=== PATIENT | female | born 1955 | race Caucasian/White ===

== ENCOUNTER → 2021-07-19 | Outpatient (CLI) | payer BC ==
--- NOTE | 2021-07-20 02:26 | MR ---
EXAMINATION TYPE: MR shoulder RT wo con DATE OF EXAM: 07/19/2021 COMPARISON: None HISTORY: Pain in right shoulder Multiplanar multiecho imaging of the right shoulder without contrast. There is mild shoulder joint effusion. Subscapularis tendon is intact. The glenoid romel appear intac t. Biceps tendon is intact. There is fluid around the biceps tendon. There is small amount of fluid in the subacromial joint space. The supraspinatus tendon appears gross ly intact. There is no retraction. I see no evidence of a full-thickness tear. The AC joint is intact . There is no significant spur formation. There is no evidence of focal bone destruction. IMPRESSION: No evidence of any significant rotator cuff tear. There is shoulder joint effusion consistent with so me nonspecific synovitis. No fracture.
== END | disposition home or self-care (01) ==
LOC: RADMRIMAIN 07:30
PROVIDERS: ATTEND Physician Assistant Medical
DX: M25.411 Effusion, right shoulder (principal)

== ENCOUNTER → 2021-11-08 | Outpatient (CLI) | payer BC ==
--- NOTE | 2021-11-08 15:42 | CT ---
EXAMINATION TYPE: CT abdomen pelvis wo con DATE OF EXAM: 11/08/2021 COMPARISON: None available HISTORY: hematuria, hx of stones CT DLP: 777.3 mGycm Automated exposure control for dose reduction was used. TECHNIQUE: Helical acquisition of images was performed from the lung bases through the pelvis. FINDINGS: LUNG BASES: No significant abnormality is appreciated. LIVER/GB: No significant abnormality is appreciated. PANCREAS: Slightly atrophic pancreas. SPLEEN: No significant abnormality is seen. ADRENALS: No significant abnormality is seen. KIDNEYS: Few nonobstructing calculi are seen within the left kidney measuring up to 4 mm. A few left upper pole renal cysts without gross suspicious feature, suboptimally assessed by this nonenhanced CT scan. No other definite radiodense urinary calculi. No hydroureter or hydronephrosis bilaterally. FREE AIR: No free air is visualized RETROPERITONEAL ADENOPATHY: None visualized REPRODUCTIVE ORGANS: No significant abnormality is seen URINARY BLADDER: Nondistended with slightly thickened wall, please correlate with urinalysis results . PELVIC ADENOPATHY: None visualized. OSSEOUS STRUCTURES: No significant abnormality is seen. BOWEL: Sizable hiatal hernia containing the gastric fundus. Unremarkable remainder of the stomach, d uodenum and small bowel. No gross colonic abnormality. Normal appendix. OTHER: No sizable ascites. IMPRESSION: Few left renal nonobstructing calculi measuring up to 4 mm. No radiodense obstructing calculi identif ied. No hydroureter or hydronephrosis. Suspected left upper pole renal cysts without suspicious featu re, suboptimally assessed. Nondistended urinary bladder with slightly thickened wall, please correlat e with urinalysis results. Other findings as described above.
== END | disposition home or self-care (01) ==
LOC: RADCTMAIN 15:06
PROVIDERS: ATTEND Family Medicine
DX: N20.0 Calculus of kidney (principal); N32.89 Other specified disorders of bladder
CPT/HCPCS: 74176

== ENCOUNTER → 2024-10-28 | Outpatient (CLI) | payer BC, MEDICARE ==
--- NOTE | 2024-10-28 11:15 | CA ---
Transthoracic Echo Report Name: Cris You Age: 69 Gender: F : 1955 Exam Date: 10/28/2024 08:20 Exam Location: [facility] Ht (in): 64 Wt (lb): 170 Ordering Physician: Hank Snow MD Attending/Referring Phys: Chelsea Huggins [facility] [employer] Aruna Lozoya RDCS Procedure CPT: Indications: R07.9 CHEST PAIN Z12.31 SCREEN MAMMO Cardiac Hx: Technical Quality: Fair Contrast 1: Total Dose (mL): Contrast 2: Total Dose (mL): MEASUREMENTS (Male / Female) Normal Values 2D ECHO LV Diastolic Diameter PLAX 4.1 cm 4.2 - 5.9 / 3.9 - 5.3 cm LV Systolic Diameter PLAX 2.7 cm IVS Diastolic Thickness 0.9 cm 0.6 - 1.0 / 0.6 - 0.9 cm LVPW Diastolic Thickness 0.9 cm 0.6 - 1.0 / 0.6 - 0.9 cm LV Relative Wall Thickness 0.4 RV Internal Dim ED PLAX 1.6 cm LA Systolic Diameter LX 3.4 cm 3.0 - 4.0 / 2.7 - 3.8 cm LV Diastolic Volume MOD BP 43.0 cm??? 67 - 155 / 56 - 104 cm??? LV Systolic Volume MOD BP 20.0 cm??? 22 - 58 / 19 - 49 cm??? LV Ejection Fraction MOD BP 53.5 % >= 55 % LV Cardiac Index MOD BP 900.6 cm???/min???m??? LV Diastolic Volume MOD 4C 44.4 cm??? LV Systolic Volume MOD 4C 20.6 cm??? LV Ejection Fraction MOD 4C 53.5 % LV Cardiac Index MOD 4C 931.0 cm???/min???m??? LV Diastolic Length 4C 7.1 cm LV Systolic Length 4C 5.4 cm LV Diastolic Volume MOD 2C 39.8 cm??? LV Systolic Volume MOD 2C 18.4 cm??? LV Ejection Fraction MOD 2C 53.8 % LV Cardiac Index MOD 2C 838.4 cm???/min???m??? LV Diastolic Length 2C 6.7 cm LV Systolic Length 2C 5.8 cm M-MODE Aortic Root Diameter MM 2.8 cm LA Systolic Diameter MM 3.6 cm LA Ao Ratio MM 1.3 AV Cusp Separation MM 1.7 cm DOPPLER Mitral E Point Velocity 57.8 cm/s Mitral A Point Velocity 69.7 cm/s Mitral E to A Ratio 0.8 MV Deceleration Time 286.8 ms MV E' Velocity 7.8 cm/s Mitral E to MV E' Ratio 7.4 TR Peak Velocity 214.4 cm/s TR Peak Gradient 18.4 mmHg Right Ventricular Systolic Press 28.4 mmHg FINDINGS Left Ventricle Left ventricular ejection fraction is estimated at 55-60 %.Normal left ventricular systolic function with no obvious regional wall motion abnormalities. Left ventricular cavity size normal. Left ventricular wall thickness normal. Average global longitudinal strain of the left ventricle with a value of - 18.8 %. Right Ventricle Normal right ventricular size and function. Right ventricular systolic pressure within normal limits. Right Atrium Normal right atrial size. Left Atrium Normal left atrial size. Mitral Valve Structurally normal mitral valve. [id number] mitral regurgitation. No mitral stenosis. Aortic Valve Trileaflet aortic valve. No aortic valve stenosis or regurgitation. Tricuspid Valve Structurally normal tricuspid valve. Mild tricuspid regurgitation. No tricuspid stenosis. Pulmonic Valve Structurally normal pulmonic valve. Trace pulmonic regurgitation. No pulmonic stenosis. Pericardium No pericardial or pleural effusion. Aorta Normal size aortic root and proximal ascending aorta. CONCLUSIONS Normal LVEF Mild to moderate MR Previewed by: Dr. Santo Bonilla MD (Electronically Signed) Final Date: 28 October 2024 11:14
== END | disposition home or self-care (01) ==
LOC: RADECHMAIN 08:01
PROVIDERS: ATTEND Family Medicine
DX: R07.9 Chest pain, unspecified (principal)
CPT/HCPCS: 93306

== ENCOUNTER → 2024-10-31 | Outpatient (CLI) | payer BC, MEDICARE ==
--- NOTE | 2024-10-31 11:27 | MM ---
Reason for Exam: Screening (asymptomatic). Patient History: Menarche at age 15. First Full-Term at age 27. Postmenopausal. Patient has history of breast feeding. Patient used Hormonal Contraceptives for 12 years. Risk Values: Bridget 5 year model risk: 1.7%. NCI Lifetime model risk: 5.6%. Prior Study Comparison: No prior studies available for comparison. Tissue Density: There are scattered areas of fibroglandular density. Findings: Analyzed By CAD. No significant mass, suspicious microcalcification, or other discrete abnormality is seen. Overall Assessment: Negative, BI-RAD 1 Management: Screening Mammogram of both breasts in 1 year. Patient should continue monthly self-breast exams. A clinical breast exam by your physician is recommended on an annual basis. This exam should not preclude additional follow-up of suspicious palpable abnormalities. Note on Bridget scores and lifetime risk: 1. A Bridget score greater than 3% is considered moderate risk. If this is the case, consider specialist referral to assess eligibility for a risk reducing agent. 2. If overall lifetime risk for the development of breast cancer is 20% or higher, the patient may qualify for future screening with alternating mammogram and breast MRI. [facility], , 10/31/2024 11:24 AM. Electronically signed and approved by: Wendi Deutsch M.D. Radiologist
== END | disposition home or self-care (01) ==
LOC: RADMAMWWP 08:20
PROVIDERS: ATTEND Family Medicine
DX: Z12.31 Encounter for screening mammogram for malignant neoplasm of breast (principal); R92.323 Mammographic fibroglandular density, bilateral breasts; Z78.0 Asymptomatic menopausal state; Z92.0 Personal history of contraception
CPT/HCPCS: 77063; 77067